=== PATIENT | female | born 1980 | race Caucasian/White ===

== ENCOUNTER 2016-05-01 13:20 | Outpatient (RCR) | payer BC ==
[~2016-05-01] VITALS: Ht 167.6 cm; Wt 108.0 kg
[~2016-05-01 13:20] MED LIST: BENADRYL25 M2 PO; PRENATAL1 TA7 PO; TYLENOL 500MG500 MG PO
== END 2016-07-24 | disposition home or self-care (01) ==
LOC: LDRO
DX: O26.613 Liver and biliary tract disorders in pregnancy, third trimester (principal); K83.1 Obstruction of bile duct; Z3A.36 36 weeks gestation of pregnancy; Z90.49 Acquired absence of other specified parts of digestive tract
CPT/HCPCS: J0702

== ENCOUNTER → 2019-01-23 | Outpatient (CLI) | payer BC | LOC: MC.RAD 10:00 | DX: R63.4 Abnormal weight loss (principal); N63.20 Unspecified lump in the left breast, unspecified quadrant; N63.10 Unspecified lump in the right breast, unspecified quadrant | CPT/HCPCS: G0279 ==

== ENCOUNTER 2021-04-29 09:20 | Day surgery (SDC) | payer BC ==
[~2021-04-29] VITALS: Ht 167.6 cm; Wt 85.5 kg
[2021-04-29] MEDS ORDERED: CONCERTA18 MG PO (09:36)
[2021-04-29] MEDS ORDERED: MELATONIN5 M1 PO (09:36)
[2021-04-29] MEDS ORDERED: PROBIOTIC 2 BI1 EACH PO (09:37)
[2021-04-29] MEDS ORDERED: STOOL SOFTENER240 M1 PO (09:37)
[2021-04-29 10:07] VITALS: BP 122/79; PULSE 72; TEMP 98.1
[2021-04-29 11:35] VITALS: BP 122/81; PULSE 60
--- NOTE | 2021-04-29 11:35 | NUR ---
Patient returns to [facility] per cart after having EGD and colonoscopy completed. Transfers with two person assist. Temp 97.8. IV fluids infusing. Spouse in room. Call light in reach. Drowsy and allowed to rest.
--- NOTE | 2021-04-29 11:47 | NUR ---
Dr. Howard in the room and talks with the patient and spouse. All questions answered.
[2021-04-29 11:50] VITALS: BP 114/76; PULSE 61
--- NOTE | 2021-04-29 11:50 | NUR ---
Sipping on water, diet Sprite, and eating toast. Denies nausea. States that her throat feels tender. Spouse remains in the room.
[2021-04-29 12:05] VITALS: BP 117/85; PULSE 61
--- NOTE | 2021-04-29 12:05 | NUR ---
Tolerates snack. Talks with spouse.
--- NOTE | 2021-04-29 12:30 | NUR ---
IV discontinued and site is free of redness. Ambulates across the hallway and voids. Returns to room and dresses self.
--- NOTE | 2021-04-29 12:37 | NUR ---
Dismissal instructions given and voices understanding of these. Patient taken per wheelchair to vehicle and assisted into car driven by spouse. Dismsissed to home with instructions in hand.
== END 2021-04-29 12:37 | disposition home or self-care (01) ==
LOC: SDCO 09:20
DX: K59.09 Other constipation (principal); R10.32 Left lower quadrant pain; K20.90 Esophagitis, unspecified without bleeding; E66.9 Obesity, unspecified; F41.9 Anxiety disorder, unspecified; Z68.39 Body mass index [BMI] 39.0-39.9, adult; Z98.84 Bariatric surgery status; Z90.49 Acquired absence of other specified parts of digestive tract; Z79.899 Other long term (current) drug therapy; Z83.3 Family history of diabetes mellitus; Z80.1 Family history of malignant neoplasm of trachea, bronchus and lung; Z82.3 Family history of stroke; Z82.49 Family history of ischemic heart disease and other diseases of the circulatory system
CPT/HCPCS: J7030